=== PATIENT | male | born 1970 | race Caucasian/White ===

== ENCOUNTER 2016-05-03 07:55 | Day surgery (SDC) | payer BC ==
[~2016-05-03] VITALS: Ht 167.6 cm; Wt 120.7 kg
[~2016-05-03 07:55] MED LIST: CLEOCIN300 MG PO; IBUPROFEN200 M1 PO; NEXIUM20 MG PO; NEXIUM40 MG PO; NOHOMEMEDS; NORCO 5/3251 TABLET PO
[2016-05-03 08:29] VITALS: BP 148/91
[2016-05-03 08:42] LABS: HEMATOCRIT 42.5 % (38.0-50.0); MCH 29.7 PG (29.0-34.0); MCHC 33.9 G/DL (30.0-36.0); MCV 87.6 FL (86-99); PLATELET COUNT 298 K/uL (156-360); RBC DIS.WIDTH-CV 13.6 % (11.8-14.6); RBC DIS.WIDTH-SD 43.5 % (39-53); RED BLOOD COUNT 4.85 M/uL (4.00-5.50); WHITE BLOOD COUNT 10.6 K/uL (4.1-10.2)
[2016-05-03] MEDS ORDERED: NORCO 5/3251 TABLET PO ×2 (11:52→12:13)
[2016-05-03 12:25] VITALS: BP 156/98
[2016-05-03 13:05] VITALS: BP 166/94
== END 2016-05-03 13:10 | disposition home or self-care (01) ==
LOC: SDC 07:55
PROVIDERS: Anesthesiology
DX: L02.215 Cutaneous abscess of perineum (principal); I10 Essential (primary) hypertension; K21.9 Gastro-esophageal reflux disease without esophagitis
CPT/HCPCS: 85027; 88305; 93005; J2405; J3010; S0020

== ENCOUNTER 2017-09-23 14:05 | Emergency (ER) | payer BC ==
[~2017-09-23] VITALS: Ht 175.3 cm; Wt 124.6 kg
[2017-09-23] MEDS ORDERED: NAPROSYN500 MG PO (17:06)
[2017-09-23 17:17] VITALS: BP 136/93
== END 2017-09-23 17:17 | disposition home or self-care (01) ==
LOC: EXP 14:05 → EME 14:05 → EXP 17:17
DX: M70.22 Olecranon bursitis, left elbow (principal)
CPT/HCPCS: 73080; 99281; 99283